=== PATIENT | male | born 1955 | race Caucasian/White ===

== ENCOUNTER 2016-08-03 07:36 | Emergency (ER) | payer BC ==
[~2016-08-03] VITALS: Ht 180.3 cm; Wt 72.2 kg
[2016-08-03] MEDS ORDERED: ATOR40TA75 (08:16)
[2016-08-03] MEDS ORDERED: ASPI1TAB15 (08:16)
[2016-08-03] MEDS ORDERED: LISI10TA4 (08:17)
[2016-08-03 08:26] LABS: BASO % 0.4 % (0.0-1.0); EOS # 0.4 K/mm3 (0.0-0.50); EOS % 4.4 % (0.0-3.0); LARGE UNSTAINED CELL # 0.1 K/mm3 (0.0-0.4); LARGE UNSTAINED CELL % 1.5 % (0.0-4.0); LYMPH # 1.4 K/mm3 (1.5-4.5); MEAN CORPUSCULAR HEMOGLOBIN 31.9 pg (27.0-33.0); MEAN CORPUSCULAR HGB CONC 33.7 g/dl (32.0-36.5); MEAN CORPUSCULAR VOLUME 94.6 fl (80.0-96.0); MONO # 0.5 K/mm3 (0.0-0.8); MONO % 5.7 % (0.0-5.0); NEUTROPHILS # 6.2 K/mm3 (1.8-7.7); NEUTROPHILS % 73.1 % (36.0-66.0); PLATELET COUNT, AUTOMATED 225 k/mm3 (150-450); WHITE BLOOD COUNT 8.5 K/mm3 (4.0-10.0)
--- NOTE | 2016-08-03 08:33 | REP ---
Clinical: Chest pain . Comparison: 03/11/2014 . Findings: The mediastinum and cardiac silhouette are stable and within normal limits for portable technique. The lung bateman are clear without acute consolidation, effusion, or pneumothorax. Skeletal structures are intact. Impression: Normal portable chest x-ray Signed by Harshil Morton MD 08/03/2016 08:24 A
[2016-08-03 08:41] LABS: ALBUMIN 4.4 GM/DL (3.2-5.2); ALBUMIN/GLOBULIN RATIO 1.29 (1.00-1.93); ALKALINE PHOSPHATASE 121 U/L (45-117); ALT/SGPT 32 U/L (12-78); ANION GAP 7 MEQ/L (8-16); AST/SGOT 20 U/L (15-37); BILIRUBIN,DIRECT 0.2 MG/DL (0.0-0.2); BILIRUBIN,TOTAL 0.9 MG/DL (0.2-1.0); BLOOD UREA NITROGEN 14 MG/DL (7-18); CARBON DIOXIDE LEVEL 29 MEQ/L (21-32); CHLORIDE LEVEL 101 MEQ/L (98-107); CREATININE FOR GFR 1.32 MG/DL (0.70-1.30); GLOMERULAR FILTRATION RATE 59.1 (>56); GLUCOSE, FASTING 150 MG/DL (70-105); POTASSIUM SERUM 4.1 MEQ/L (3.5-5.1); SODIUM LEVEL 137 MEQ/L (136-145); TOTAL PROTEIN 7.8 GM/DL (6.4-8.2)
[2016-08-03 08:48] LABS: MAGNESIUM LEVEL 2.4 MG/DL (1.8-2.4)
[2016-08-03 16:19] VITALS: BP 117/73
--- NOTE | 2016-08-04 07:28 | ECGEPIP ---
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
--- NOTE | 2016-08-04 07:34 | ECGEPIP ---
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
== END 2016-08-03 16:20 | disposition home or self-care (01) ==
LOC: M ED 08:13
DX: R00.2 Palpitations (principal); I10 Essential (primary) hypertension; E78.5 Hyperlipidemia, unspecified; Z87.891 Personal history of nicotine dependence; Z79.82 Long term (current) use of aspirin; Z79.899 Other long term (current) drug therapy

== ENCOUNTER → 2017-11-23 | Outpatient (REF) | payer OTHER ==
[2017-11-23 12:21] LABS: BASO # 0.1 10^3/uL (0.0-0.2); BASO % 0.6 % (0.0-1.0); EOS # 0.3 10^3/uL (0.0-0.50); EOS % 3.1 % (0.0-3.0); HEMATOCRIT 49.4 % (42.0-52.0); HEMOGLOBIN 15.9 g/dl (13.5-17.5); IMMATURE GRANULOCYTE % 0.5 % (0-3.0); LYMPH # 1.9 10^3/uL (1.5-4.5); LYMPH % 19.9 % (24.0-44.0); MEAN CORPUSCULAR HEMOGLOBIN 30.6 pg (27.0-33.0); MEAN CORPUSCULAR HGB CONC 32.2 g/dl (32.0-36.5); MONO # 0.8 10^3/uL (0.0-0.8); NEUTROPHILS # 6.6 10^3/uL (1.8-7.7); NEUTROPHILS % 67.9 % (36.0-66.0); PLATELET COUNT, AUTOMATED 261 10^3/uL (150-450); RED CELL DISTRIBUTION WIDTH 12.1 % (11.5-14.5); WHITE BLOOD COUNT 9.7 10^3/uL (4.0-10.0)
[2017-11-23 13:11] LABS: ALBUMIN 4.4 GM/DL (3.2-5.2); ALBUMIN/GLOBULIN RATIO 1.47 (1.00-1.93); ALKALINE PHOSPHATASE 119 U/L (45-117); ALT/SGPT 45 U/L (12-78); ANION GAP 7 MEQ/L (8-16); AST/SGOT 23 U/L (7-37); BILIRUBIN,TOTAL 0.6 MG/DL (0.2-1.0); BLOOD UREA NITROGEN 13 MG/DL (7-18); CALCIUM LEVEL 8.9 MG/DL (8.8-10.2); CARBON DIOXIDE LEVEL 31 MEQ/L (21-32); CHLORIDE LEVEL 100 MEQ/L (98-107); CHOLESTEROL LEVEL 157 MG/DL (<200); CHOLESTEROL RISK RATIO 2.907 (<5); CREATININE FOR GFR 1.15 MG/DL (0.70-1.30); FREE THYROXINE INDEX 3.1 % (1.4-3.8); GLOMERULAR FILTRATION RATE > 60.0 (>49); GLUCOSE, FASTING 115 MG/DL (70-100); HDL CHOLESTEROL 54 MG/DL (>40); LDL CHOLESTEROL 86 MG/DL (<100); NON-HDL-C 103 MG/DL; POTASSIUM SERUM 4.8 MEQ/L (3.5-5.1); PSA SCREENING 2.88 NG/ML (< 4.0); SODIUM LEVEL 138 MEQ/L (136-145); T UPTAKE 30 % (33-40); THYROXINE (T4) 10.4 UG/DL (4.5-12.0); TOTAL PROTEIN 7.4 GM/DL (6.4-8.2); TRIGLYCERIDES LEVEL 85 MG/DL (<150)
== END ==
LOC: M SFHCPLAZ 10:19
DX: Z00.00 Encounter for general adult medical examination without abnormal findings (principal); R22.1 Localized swelling, mass and lump, neck; Z12.5 Encounter for screening for malignant neoplasm of prostate
CPT/HCPCS: 84443

== ENCOUNTER → 2017-12-02 | Outpatient (CLI) | payer OTHER ==
[~2017-12-02] MED LIST: ISOVUE-370 76% 100ML VIAL (Q9967) As Ordered
== END ==
LOC: M RAD 15:28
DX: R22.1 Localized swelling, mass and lump, neck (principal)
CPT/HCPCS: Q9967

== ENCOUNTER → 2017-12-09 | Outpatient (CLI) | payer SELFPAY, OTHER | LOC: M RAD 16:08 | DX: Z12.2 Encounter for screening for malignant neoplasm of respiratory organs (principal); Z87.891 Personal history of nicotine dependence; R91.8 Other nonspecific abnormal finding of lung field ==

== ENCOUNTER 2018-01-04 06:53 | Day surgery (SDC) | payer OTHER ==
[2018-01-04] MEDS ORDERED: SIMETHICONE 40MG/0.6ML DROPS 30ML As Ordered (07:02)
[2018-01-04] MEDS: NS 1,000 ML IV (07:10)
[2018-01-04] MEDS ORDERED: LIDOCAINE 2% INJ 100 MG/5 ML SDV (FOR ANES.) As Ordered (07:36)
[2018-01-04] MEDS ORDERED: PROPOFOL 500 MG/50 ML VIAL As Ordered (07:36)
== END 2018-01-04 08:24 | disposition home or self-care (01) ==
LOC: M OPP 06:53
DX: Z12.11 Encounter for screening for malignant neoplasm of colon (principal); K57.30 Diverticulosis of large intestine without perforation or abscess without bleeding; J44.9 Chronic obstructive pulmonary disease, unspecified; I10 Essential (primary) hypertension; I25.2 Old myocardial infarction; R06.83 Snoring; Z79.82 Long term (current) use of aspirin; Z79.899 Other long term (current) drug therapy; Z95.5 Presence of coronary angioplasty implant and graft; Z87.891 Personal history of nicotine dependence; Z90.49 Acquired absence of other specified parts of digestive tract; Z98.890 Other specified postprocedural states
CPT/HCPCS: 45378

== ENCOUNTER → 2018-01-04 | Outpatient (CLI) | payer OTHER ==
[2018-01-04 11:04] LABS: GLUCOSE,RANDOM 128 MG/DL (LESS THAN 200)
== END ==
LOC: M LAB 09:01
DX: Z13.1 Encounter for screening for diabetes mellitus (principal)
CPT/HCPCS: 82947

== ENCOUNTER → 2018-12-08 | Outpatient (CLI) | payer OTHER ==
[~2018-12-08] MED LIST changes: +ASPI1TAB15 PO; +ATOR40TA75 PO; -ISOVUE-370 76% 100ML VIAL (Q9967) As Ordered; +LISI10TA4 PO; +PANT20TA2 PO
--- NOTE | 2018-12-08 15:50 | REP ---
Clinical: Chronic obstructive pulmonary disease with acute cough . Comparison: 08/03/2016 . Technique: PA and lateral. Findings: The mediastinum and cardiac silhouette are normal. The lung bateman demonstrate chronic changes consistent with COPD without acute consolidation, effusion, or pneumothorax. The skeletal structures are intact and normal. Impression: 1. COPD. No acute cardiopulmonary process. Electronically Signed by Harshil Morton MD 12/08/2018 03:00 P
== END ==
LOC: M WUC 14:36
PROVIDERS: ATTEND Physician Assistant
DX: J44.9 Chronic obstructive pulmonary disease, unspecified (principal)

== ENCOUNTER 2019-03-09 10:53 | Emergency (ER) | payer OTHER ==
[~2019-03-09] VITALS: Ht 180.3 cm; Wt 83.0 kg
[2019-03-09] MEDS ORDERED: AMOXTAB (11:25)
[2019-03-09] MEDS ORDERED: ALLE1TAB23 (11:25)
[2019-03-09] MEDS ORDERED: NAPR-885 (11:25)
[2019-03-09 11:44] LABS: BASO % 0.5 % (0.0-1.0); EOS # 0.9 10^3/uL (0.0-0.5); EOS % 9.9 % (0.0-3.0); HEMATOCRIT 43.4 % (42.0-52.0); LYMPH # 1.6 10^3/uL (1.5-5.0); LYMPH % 18.1 % (24.0-44.0); MEAN CORPUSCULAR HEMOGLOBIN 30.4 pg (27.0-33.0); MEAN CORPUSCULAR HGB CONC 32.3 g/dl (32.0-36.5); MEAN CORPUSCULAR VOLUME 94.3 fl (80.0-96.0); MONO # 0.6 10^3/uL (0.0-0.8); NEUTROPHILS # 5.6 10^3/uL (1.5-8.5); PLATELET COUNT, AUTOMATED 207 10^3/uL (150-450); WHITE BLOOD COUNT 8.8 10^3/uL (4.0-10.0)
[2019-03-09 11:55] LABS: INR 1.01
[2019-03-09 12:15] LABS: BLOOD UREA NITROGEN 19 MG/DL (7-18); CALCIUM LEVEL 8.9 MG/DL (8.8-10.2); CARBON DIOXIDE LEVEL 27 MEQ/L (21-32); CHLORIDE LEVEL 107 MEQ/L (98-107); CPK CREATINE PHOSPHOKINASE 128 U/L (39-308); CREATININE FOR GFR 1.09 MG/DL (0.70-1.30); GLOMERULAR FILTRATION RATE > 60.0 (>49); GLUCOSE, FASTING 113 MG/DL (70-100); MB/CK RELATIVE INDEX 0.78 (< OR =4); NT-PRO BNP 70 PG/ML (<125); POTASSIUM SERUM 4.5 MEQ/L (3.5-5.1); SODIUM LEVEL 141 MEQ/L (136-145); TROPONIN I < 0.02 NG/ML (< 0.10)
--- NOTE | 2019-03-09 13:32 | ECGEPIP ---
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
--- NOTE | 2019-03-09 13:37 | REP ---
CHEST, TWO VIEWS: Two views of the chest are performed and compared to a prior study of 12/08/2018. There is mild scattered fibrotic change with mild biapical pleural thickening, stable. There is no acute infiltrate. The heart is normal in size and the mediastinal silhouette is unremarkable and unchanged. IMPRESSION: No acute infiltrate. Electronically Signed by Glenn Ohara MD 03/09/2019 03:26 P
[2019-03-09] MEDS ORDERED: dexameTHASONE 20 MG/5 ML VIAL (J1100) IV ONE (13:45)
[2019-03-09] MEDS ORDERED: ALBUTEROL SULFATE 2.5 MG/0.5 ML INH NEB SOLN INH ONE (13:45)
[2019-03-09] MEDS ORDERED: IPRATROPIUM 0.5MG/ALBUTEROL 2.5MG INH SOL UD 3ML (DUONEB)(J7620) NEB ONE (13:45)
[2019-03-09] MEDS ORDERED: ISOVUE-370 76% 100ML VIAL (Q9967) As Ordered ONE (13:47)
--- NOTE | 2019-03-09 14:17 | REP ---
CT of the chest with IV contrast, CT pulmonary angiography: Comparison is the chest CT in 12/09/2017. There are no emboli in the pulmonary trunk or central pulmonary arteries. There are no emboli in the pulmonary lobe or segment branches. There are no infiltrates. No pleural effusions. There are no lung masses or nodules. There is no mediastinal, hilar or axillary adenopathy. The thoracic aorta is unremarkable. Cardiac size is normal. There is no pericardial effusion. The visualized upper abdominal contents are unremarkable except for a tiny gallbladder calculi. Impression: There are no pulmonary emboli. There are no infiltrates, effusions, masses or nodules. There is no adenopathy. There are tiny gallbladder calculi. Electronically Signed by Glenn Douglas MD 03/09/2019 02:09 P
[2019-03-09] MEDS ORDERED: PRED20TA PO (16:14)
[2019-03-09 16:15] VITALS: BP 130/81
== END 2019-03-09 16:42 | disposition home or self-care (01) ==
LOC: M ED 10:53
DX: J44.9 Chronic obstructive pulmonary disease, unspecified (principal); R00.1 Bradycardia, unspecified; I45.89 Other specified conduction disorders; Z95.5 Presence of coronary angioplasty implant and graft; F17.200 Nicotine dependence, unspecified, uncomplicated; Z79.82 Long term (current) use of aspirin; Z79.899 Other long term (current) drug therapy
CPT/HCPCS: 71046; 71275; 80048; 82550; 82553; 83880; 84484; 85025; 85610; 93005; 93041; 94640; 94760; 96374; 99285; J1100; Q9967

== ENCOUNTER 2019-03-22 08:05 | Emergency (ER) | payer OTHER ==
[~2019-03-22] VITALS: Ht 180.3 cm; Wt 78.6 kg
[~2019-03-22 08:05] MED LIST changes: +ALLE1TAB23; +AMOXTAB; +NAPR-885; +PRED20TA PO
[2019-03-22] MEDS ORDERED: ATOR80TA59 (08:17)
[2019-03-22] MEDS ORDERED: IPRATROPIUM 0.5MG/ALBUTEROL 2.5MG INH SOL UD 3ML (DUONEB)(J7620) NEB ONE (08:30)
--- NOTE | 2019-03-22 09:14 | REP ---
Clinical: Cough . Comparison: 03/09/2019 . Technique: PA and lateral. Findings: The mediastinum and cardiac silhouette are normal. The lung bateman are clear and without acute consolidation, effusion, or pneumothorax. The skeletal structures are intact and normal. Impression: 1. No acute cardiopulmonary process. Electronically Signed by Harshil Morton MD 03/22/2019 09:06 A
[2019-03-22 09:19] LABS: INFLUENZA A AMPLIFICATION NEGATIVE (NEGATIVE); INFLUENZA B AMPLIFICATION NEGATIVE (NEGATIVE)
[2019-03-22] MEDS ORDERED: PRED10TA2 PO (09:42)
[2019-03-22 10:00] VITALS: BP 117/68
== END 2019-03-22 10:11 | disposition home or self-care (01) ==
LOC: M ED 08:05
DX: J20.5 Acute bronchitis due to respiratory syncytial virus (principal); I25.10 Atherosclerotic heart disease of native coronary artery without angina pectoris; I10 Essential (primary) hypertension; J44.9 Chronic obstructive pulmonary disease, unspecified; K21.9 Gastro-esophageal reflux disease without esophagitis; K57.30 Diverticulosis of large intestine without perforation or abscess without bleeding; Z79.82 Long term (current) use of aspirin; Z79.899 Other long term (current) drug therapy

== ENCOUNTER 2019-04-08 07:42 | Emergency (ER) | payer OTHER ==
[~2019-04-08] VITALS: Ht 180.3 cm; Wt 78.2 kg
[~2019-04-08 07:42] MED LIST changes: +ATOR80TA59; +PRED10TA2 PO
[2019-04-08] MEDS ORDERED: IBUP80TA PO (09:02)
[2019-04-08] MEDS ORDERED: AMOX500C PO (09:02)
[2019-04-08 09:27] VITALS: BP 145/85
== END 2019-04-08 09:28 | disposition home or self-care (01) ==
LOC: M ED 07:42
DX: K04.7 Periapical abscess without sinus (principal); K02.9 Dental caries, unspecified; G50.1 Atypical facial pain; R50.9 Fever, unspecified; I25.10 Atherosclerotic heart disease of native coronary artery without angina pectoris; I25.2 Old myocardial infarction; I10 Essential (primary) hypertension; J44.9 Chronic obstructive pulmonary disease, unspecified; Z79.82 Long term (current) use of aspirin; Z79.899 Other long term (current) drug therapy

== ENCOUNTER → 2019-07-27 | Outpatient (CLI) | payer OTHER ==
[~2019-07-27] MED LIST changes: +AMOX500C PO; +IBUP80TA PO
[2019-07-27 14:19] LABS: BASO % 0.5 % (0.0-1.0); EOS # 0.4 10^3/uL (0.0-0.5); EOS % 5.3 % (0.0-3.0); HEMATOCRIT 44.5 % (42.0-52.0); HEMOGLOBIN 14.4 g/dl (13.5-17.5); LYMPH % 24.9 % (24.0-44.0); MEAN CORPUSCULAR HEMOGLOBIN 30.3 pg (27.0-33.0); MEAN CORPUSCULAR HGB CONC 32.4 g/dl (32.0-36.5); MEAN CORPUSCULAR VOLUME 93.5 fl (80.0-96.0); MONO # 0.7 10^3/uL (0.0-0.8); MONO % 8.5 % (0.0-5.0); NEUTROPHILS # 4.8 10^3/uL (1.5-8.5); NEUTROPHILS % 60.4 % (36.0-66.0); PLATELET COUNT, AUTOMATED 251 10^3/uL (150-450); RED BLOOD COUNT 4.76 10^6/uL (4.30-6.10); WHITE BLOOD COUNT 7.9 10^3/uL (4.0-10.0)
[2019-07-27 15:00] LABS: ALT/SGPT 34 U/L (12-78); BILIRUBIN,TOTAL 0.8 MG/DL (0.2-1.0); BLOOD UREA NITROGEN 14 MG/DL (7-18); CALCIUM LEVEL 9.1 MG/DL (8.8-10.2); CARBON DIOXIDE LEVEL 30 MEQ/L (21-32); CHLORIDE LEVEL 104 MEQ/L (98-107); CHOLESTEROL LEVEL 113 MG/DL (<200); CHOLESTEROL RISK RATIO 2.825 (<5); CREATININE FOR GFR 1.08 MG/DL (0.70-1.30); GLOMERULAR FILTRATION RATE > 60.0 (>49); GLUCOSE, FASTING 102 MG/DL (70-100); HDL CHOLESTEROL 40 MG/DL (>40); LDL CHOLESTEROL 61 MG/DL (<100); NON-HDL-C 73 MG/DL; POTASSIUM SERUM 4.4 MEQ/L (3.5-5.1); SODIUM LEVEL 137 MEQ/L (136-145); TOTAL PROTEIN 6.9 GM/DL (6.4-8.2); TRIGLYCERIDES LEVEL 59 MG/DL (<150)
[2019-07-27 19:05] LABS: HIV 1&2 SCREEN CENTAUR NEGATIVE (NEGATIVE)
== END ==
LOC: M LAB 13:18
PROVIDERS: ATTEND Family Medicine
DX: Z13.220 Encounter for screening for lipoid disorders (principal); J06.9 Acute upper respiratory infection, unspecified; Z12.5 Encounter for screening for malignant neoplasm of prostate
CPT/HCPCS: 36415; 80053; 80061; 84443; 85025; 87389; G0103

== ENCOUNTER → 2020-03-13 | Outpatient (CLI) | payer OTHER ==
[~2020-03-13] MED LIST changes: +ASPI-546 PO; -ASPI1TAB15 PO; -PANT20TA2 PO; +PANT20TA6 PO
[2020-03-13 14:11] LABS: HEMOGLOBIN A1c 7.6 %
== END ==
LOC: M LAB 11:37
PROVIDERS: ATTEND Ophthalmology
DX: H47.022 Hemorrhage in optic nerve sheath, left eye (principal)

== ENCOUNTER → 2020-04-01 | Outpatient (REF) | payer OTHER ==
[~2020-04-01] MED LIST changes: +LISI10TA22 PO; -LISI10TA4 PO
== END ==
LOC: M SFHCPLAZ 15:53
PROVIDERS: ATTEND Family Medicine
DX: R73.09 Other abnormal glucose (principal); Z13.220 Encounter for screening for lipoid disorders; Z12.5 Encounter for screening for malignant neoplasm of prostate

== ENCOUNTER → 2020-04-14 | Outpatient (CLI) | payer OTHER ==
[2020-04-14 07:55] LABS: CHOLESTEROL RISK RATIO 2.977 (<5)
--- NOTE | 2020-04-14 08:46 | REP ---
INDICATION: SCREENING FOR LUNG CANCER LABS 1ST CT 2ND COMPARISON: 03/09/2019 TECHNIQUE: Axial noncontrast images from the thoracic inlet to the upper abdomen using low-dose lung screening technique (LDCT). FINDINGS: Biapical scarring extending along the bilateral posterior subpleural upper lung zones remains essentially stable. No new acute consolidation, suspicious nodule or mass lesion appreciated. Mild emphysematous changes including mild elements of bronchiectasis are suggested. No effusion. No pneumothorax. IMPRESSION: Lung-RADS category 2 with stable chronic changes as compared to prior examination. No suspicious nodule or mass lesion identified. Management recommendations include annual low-dose CT evaluation. <Electronically signed by Harshil Morton > 04/14/20 0805
[2020-04-14 09:39] LABS: HEMOGLOBIN A1c 8.2 %
== END ==
LOC: M LAB 06:48
PROVIDERS: ATTEND Family Medicine
DX: Z12.2 Encounter for screening for malignant neoplasm of respiratory organs (principal); Z87.891 Personal history of nicotine dependence; R73.09 Other abnormal glucose; Z13.220 Encounter for screening for lipoid disorders; Z12.5 Encounter for screening for malignant neoplasm of prostate
CPT/HCPCS: 36415; 71271; 80061; 82947; 83036; G0103

== ENCOUNTER → 2020-04-24 | Outpatient (CLI) | payer OTHER ==
[2020-04-24 11:35] LABS: BASO # 0.1 10^3/uL (0.0-0.2); BASO % 0.6 % (0.0-1.0); EOS # 0.7 10^3/uL (0.0-0.5); EOS % 7.7 % (0.0-3.0); HEMOGLOBIN 14.8 g/dl (13.5-17.5); LYMPH # 2.1 10^3/uL (1.5-5.0); LYMPH % 21.6 % (24.0-44.0); MEAN CORPUSCULAR HEMOGLOBIN 30.9 pg (27.0-33.0); MEAN CORPUSCULAR HGB CONC 32.9 g/dl (32.0-36.5); MEAN CORPUSCULAR VOLUME 93.9 fl (80.0-96.0); MONO # 0.7 10^3/uL (0.0-0.8); MONO % 7.7 % (2.0-8.0); NEUTROPHILS # 5.9 10^3/uL (1.5-8.5); PLATELET COUNT, AUTOMATED 226 10^3/uL (150-450); RED BLOOD COUNT 4.79 10^6/uL (4.30-6.10); WHITE BLOOD COUNT 9.5 10^3/uL (4.0-10.0)
[2020-04-24 12:06] LABS: BLOOD UREA NITROGEN 20 MG/DL (7-18); CALCIUM LEVEL 9.4 MG/DL (8.8-10.2); CARBON DIOXIDE LEVEL 33 MEQ/L (21-32); CHLORIDE LEVEL 104 MEQ/L (98-107); CREATININE FOR GFR 0.99 MG/DL (0.70-1.30); GLOMERULAR FILTRATION RATE > 60.0 (>49); GLUCOSE, FASTING 164 MG/DL (70-100); POTASSIUM SERUM 4.7 MEQ/L (3.5-5.1); SODIUM LEVEL 138 MEQ/L (136-145)
== END ==
LOC: M LAB 10:52
PROVIDERS: ATTEND Internal Medicine Cardiovascular Disease
DX: I21.4 Non-ST elevation (NSTEMI) myocardial infarction (principal); I10 Essential (primary) hypertension; R94.31 Abnormal electrocardiogram [ECG] [EKG]

== ENCOUNTER → 2020-06-03 | Outpatient (REF) | payer OTHER ==
[2020-06-03 13:50] LABS: MALB URINE SIEMENS 15.1 MG/L; MAU/CREAT RATIO 7.6 MCG/MG (0.0-30.0)
[2020-06-06 08:10] LABS: ISLET CELL ANTIBODIES Negative (Neg:<1:1)
== END ==
LOC: M SFHCPLAZ 09:16
PROVIDERS: ATTEND Family Medicine
DX: E11.65 Type 2 diabetes mellitus with hyperglycemia (principal)

== ENCOUNTER → 2020-07-02 | Outpatient (REF) | payer OTHER | LOC: M SFHCPLAZ 11:50 | PROVIDERS: ATTEND Family Medicine | DX: E11.65 Type 2 diabetes mellitus with hyperglycemia (principal); Z53.9 Procedure and treatment not carried out, unspecified reason ==

== ENCOUNTER → 2020-07-16 | Outpatient (CLI) | payer OTHER ==
[2020-07-16 19:37] LABS: HEMOGLOBIN A1c 6.6 %
== END ==
LOC: M LAB 10:33
PROVIDERS: ATTEND Family Medicine
DX: E11.65 Type 2 diabetes mellitus with hyperglycemia (principal)

== ENCOUNTER → 2020-08-12 | Outpatient (CLI) | payer OTHER ==
[~2020-08-12] MED LIST changes: +ISOVUE-370 76% 100ML VIAL As Ordered ONE
--- NOTE | 2020-08-12 08:30 | REP ---
INDICATION: NASAL POLYP, SWELLING/MASS/LUMP IN NECK. COMPARISON: Comparison study December 02, 2017.. TECHNIQUE: Helical scanning is acquired and 2 mm axial images re-formatted. Coronal MPR images are generated and reviewed. 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 Frontal sinuses show moderate mucosal thickening inferiorly on the left greater than the right. The frontal sinuses are otherwise clear. The maxillary sinuses are clear bilaterally. There is moderate mucosal thickening and extensive opacification in the ethmoid air cells bilaterally. There is mucosal thickening and mucoid material in the sphenoid sinuses bilaterally. Mastoid aeration is normal and symmetric. The bony nasal septum deviates to the left with a septal beak. The ostiomeatal complex is obscured on the left by mucosal thickening in the superomedial aspect of the maxillary sinus. There is mucosal thickening on the right but ostiomeatal complex area appears to be patent. The right middle turbinates this small particularly anteriorly. The left middle turbinates appears small posteriorly. There is mucosal thickening and crowding in the region of the nasal ethmoid recesses bilaterally and small polyps are suspected here particularly on the left. No bony destructive lesion is seen. Deep facial and intraorbital soft tissues are unremarkable. The visualized intracranial structures are intact. IMPRESSION: Moderate mucosal changes in the ethmoid and to a lesser extent frontal sphenoid and maxillary sinuses. Asymmetry of the middle turbinates. Nasal septal deviation to the left. Possible small polyps in the region of the nasal ethmoid recesses. <Electronically signed by Barrie Fitzpatrick > 08/12/20 [id number]
--- NOTE | 2020-08-12 08:38 | REPVR ---
PROCEDURE INFORMATION: Exam: CT Neck With Contrast Exam date and time: 08/12/2020 7:51 AM Age: 65 years old Clinical indication: Mass, lump, or swelling in neck; Bilateral; Additional info: Nasal polyp, swelling/mass/lump in neck TECHNIQUE: Imaging protocol: Computed tomography images of the neck with contrast. Radiation optimization: All CT scans at this facility use at least one of these dose optimization techniques: automated exposure control; mA and/or kV adjustment per patient size (includes targeted exams where dose is matched to clinical indication); or iterative reconstruction. Contrast material: ISOVUE 370; Contrast volume: 75 ml; Contrast route: INTRAVENOUS (IV); COMPARISON: CT Neck with contrast 12/02/2017 3:44 PM FINDINGS: Paranasal sinuses: Fluid and mucosal thickening in the bilateral frontal sinuses, sphenoid sinuses, and ethmoid air cells. Nasopharynx: Unremarkable. Dental: Poor dentition. No clear evidence of a periodontal abscess. Oropharynx: Unremarkable. No significant tonsillar enlargement. Hypopharynx: Unremarkable. Larynx: Unremarkable. Normal epiglottis. Retropharyngeal space: Unremarkable. Submandibular/Parotid glands: Normal. Glands are normal in size. Thyroid: Normal. No enlarged or calcified nodules. Lymph nodes: Unremarkable. No lymphadenopathy. Trachea: Visualized trachea is unremarkable. Lungs: Biapical scarring and mild traction bronchiectasis. Bones/joints: Unremarkable. No acute fracture. Vasculature: Mild atherosclerotic disease. Soft tissues: Unremarkable. No significant soft tissue swelling. IMPRESSION: Paranasal sinus disease. Electronically signed by: Miky Gloria On 08/12/2020 08:37:47 AM
== END ==
LOC: M RAD 07:20
PROVIDERS: ATTEND Otolaryngology
DX: J33.9 Nasal polyp, unspecified (principal); R22.1 Localized swelling, mass and lump, neck; J34.2 Deviated nasal septum; J32.2 Chronic ethmoidal sinusitis; J32.3 Chronic sphenoidal sinusitis; J32.1 Chronic frontal sinusitis

== ENCOUNTER → 2020-09-23 | Outpatient (REF) | payer OTHER ==
[~2020-09-23] MED LIST changes: -ISOVUE-370 76% 100ML VIAL As Ordered ONE
== END ==
LOC: M SFHCPLAZ 14:25
PROVIDERS: ATTEND Family Medicine
DX: E11.65 Type 2 diabetes mellitus with hyperglycemia (principal)

== ENCOUNTER → 2020-12-01 | Outpatient (CLI) | payer OTHER ==
[~2020-12-01] MED LIST changes: -ATOR80TA59; +ATOR80TA59 PO; +FLON1SPR; +METF-838 PO; +ZYRTTAB8 PO
== END ==
LOC: M LABSMTC 10:20
PROVIDERS: ATTEND Anesthesiology
DX: Z01.812 Encounter for preprocedural laboratory examination (principal); Z20.822 Contact with and (suspected) exposure to COVID-19

== ENCOUNTER 2020-12-05 06:43 | Day surgery (SDC) | payer OTHER ==
[~2020-12-05] VITALS: Ht 180.3 cm; Wt 75.7 kg
[~2020-12-05 06:43] MED LIST changes: +LIDOCAINE 2% 100MG/5ML SDV (FOR ANES.) As Ordered ONE; +NS 1,000 ML IV ONE; +fentaNYL 100 MCG/2 ML INJECTION (J3010) As Ordered ONE; +propofoL 200 MG/20 ML VIAL As Ordered ONE
--- NOTE | 2020-12-05 08:12 | ROOR ---
Patient Name: Tiago Clement Procedure Date: 12/05/2020 7:35 AM Date of : 1955 Age: 65 Room: [facility] Gender: Male Note Status: Finalized Procedure: Upper GI endoscopy Indications: Dysphagia, Heartburn Providers: Kuldip Bruno MD Referring MD: Efrain Clemente Do Requesting Provider: Medicines: Monitored Anesthesia Care Complications: No immediate complications. Procedure: Pre-Anesthesia Assessment: - Prior to the procedure, a History and Physical was performed, and patient medications and allergies were reviewed. The patient is competent. The risks and benefits of the procedure and the sedation options and risks were discussed with the patient. All questions were answered and informed consent was obtained. Patient identification and proposed procedure were verified by the physician, the nurse and the anesthesiologist in the procedure room. Mental Status Examination: alert and oriented. Airway Examination: normal oropharyngeal airway and neck mobility. Respiratory Examination: clear to auscultation. CV Examination: normal. Prophylactic Antibiotics: The patient does not require prophylactic antibiotics. Prior Anticoagulants: The patient has taken no previous anticoagulant or antiplatelet agents. ASA Grade Assessment: II - A patient with mild systemic disease. After reviewing the risks and benefits, the patient was deemed in satisfactory condition to undergo the procedure. The anesthesia plan was to use monitored anesthesia care (MAC). Immediately prior to administration of medications, the patient was re-assessed for adequacy to receive sedatives. The heart rate, respiratory rate, oxygen saturations, blood pressure, adequacy of pulmonary ventilation, and response to care were monitored throughout the procedure. The physical status of the patient was re-assessed after the procedure. The Endoscope was introduced through the mouth, and advanced to the second part of duodenum. The upper GI endoscopy was accomplished without difficulty. The patient tolerated the procedure well. Findings: LA Grade A (one or more mucosal breaks less than 5 mm, not extending between tops of 2 mucosal folds) esophagitis with no bleeding was found in the distal esophagus. Biopsies were taken with a cold forceps for histology. Verification of patient identification for the specimen was done by the physician and nurse using the patient's name, date and medical record number. Estimated blood loss was minimal. The Z-line was irregular and was found 41 cm from the incisors. Scattered mild inflammation characterized by erythema, friability and granularity was found in the gastric antrum. Biopsies were taken with a cold forceps for Helicobacter pylori testing. The duodenal bulb, second portion of the duodenum and area of the papilla were normal. The ROMERO capsule with delivery system was introduced through the mouth and advanced into the esophagus, such that the ROMERO pH capsule was positioned 35 cm from the incisors, which was 6 cm proximal to the GE junction. Suction was applied to the well of the ROEMRO pH capsule to suck in the adjacent mucosa of the esophagus using the external vacuum pump set at a minimum vacuum pressure of 550 mmHg for 30 seconds. The ROMERO pH capsule was then deployed by depressing the plunger on top of the handle to advance the locking pin into the mucosa, thereby attaching the capsule to the esophagus. The plunger was then rotated a quarter turn clockwise to release the capsule from the delivery system. The delivery system was then withdrawn. Endoscopy was utilized for probe placement and diagnostic evaluation. The scope was reinserted to evaluate placement of the ROMERO capsule. Visualization showed the ROMERO capsule to be in an appropriate position. Impression: - LA Grade A reflux esophagitis. Rule out Ryan's esophagus. Biopsied. - Z-line irregular, 41 cm from the incisors. - Gastritis. Biopsied. - Normal duodenal bulb, second portion of the duodenum and area of the papilla. - The ROMERO pH capsule was positioned 35 cm from the incisors, which was 6 cm proximal to the GE junction. Recommendation: - Patient has a contact number available for emergencies. The signs and symptoms of potential delayed complications were discussed with the patient. Return to normal activities tomorrow. Written discharge instructions were provided to the patient. - High fiber diet. - Continue present medications. - Follow an antireflux regimen. - Await pathology results. - Telephone GI clinic for pathology results in 2 weeks. - Return to GI clinic if persistent symptoms or new symptoms. - Return to primary care physician. Procedure Code(s): --- Professional --- 43231, Esophagogastroduodenoscopy, flexible, transoral; with biopsy, single or multiple Diagnosis Code(s): --- Professional --- K21.0, Gastro-esophageal reflux disease with esophagitis K22.8, Other specified diseases of esophagus K29.70, Gastritis, unspecified, without bleeding R13.10, Dysphagia, unspecified R12, Heartburn CPT copyright 2019 [employer]. All rights reserved. The codes documented in this report are preliminary and upon balance assembler review may be revised to meet current compliance requirements. Kuldip Bruno MD Kuldip Bruno MD 12/05/2020 8:11:17 AM Electronically signed by Kuldip Bruno MD Number of Addenda: 0 Note Initiated On: 12/05/2020 7:35 AM Estimated Blood Loss: Estimated blood loss was minimal.
[2020-12-05 08:20] VITALS: BP 115/69
== END 2020-12-05 08:27 | disposition home or self-care (01) ==
LOC: M OPP 06:43
PROVIDERS: ATTEND Internal Medicine Gastroenterology
DX: K21.00 Gastro-esophageal reflux disease with esophagitis, without bleeding (principal); K22.89 Other specified disease of esophagus; K29.70 Gastritis, unspecified, without bleeding; R13.10 Dysphagia, unspecified; R12 Heartburn; Z79.82 Long term (current) use of aspirin; Z79.84 Long term (current) use of oral hypoglycemic drugs; Z79.899 Other long term (current) drug therapy; Z95.5 Presence of coronary angioplasty implant and graft; Z87.891 Personal history of nicotine dependence
CPT/HCPCS: 43239; 88305; J3010

== ENCOUNTER → 2020-12-31 | Outpatient (CLI) | payer OTHER ==
[~2020-12-31] MED LIST changes: +AMOX875T PO; -LIDOCAINE 2% 100MG/5ML SDV (FOR ANES.) As Ordered ONE; -NS 1,000 ML IV ONE; -fentaNYL 100 MCG/2 ML INJECTION (J3010) As Ordered ONE; -propofoL 200 MG/20 ML VIAL As Ordered ONE
--- NOTE | 2020-12-31 10:44 | REPVR ---
PROCEDURE INFORMATION: Exam: CT Maxillofacial Without Contrast, Sinus Exam date and time: 12/31/2020 10:12 AM Age: 65 years old Clinical indication: Condition or disease; Other: Nasal polyps TECHNIQUE: Imaging protocol: CT Maxillofacial without contrast. Focus on the sinuses. Radiation optimization: All CT scans at this facility use at least one of these dose optimization techniques: automated exposure control; mA and/or kV adjustment per patient size (includes targeted exams where dose is matched to clinical indication); or iterative reconstruction. COMPARISON: CT BRAIN LAB SINUSES 08/12/2020 7:39 AM FINDINGS: Frontal sinuses: There is left greater than right mucosal disease. There is bilateral fluid. Nasofrontal recesses are opacified bilaterally. Ethmoid air cells: Bilateral anterior greater than posterior air cells moderate mucosal thickening. There are scattered anterior ethmoid air cells air-fluid levels. Sphenoid sinuses: There is mild bilateral mucosal disease. Small right air-fluid level. Spheno-ethmoidal recesses are opacified. Maxillary sinuses: Mild overall bilateral mucosal thickening, which is slightly polypoid superiorly and medially. Small right air-fluid level. Ostiomeatal units are included plate Kristy opacified, left greater than right. Nasal cavity/Septum: Nasal septum is moderately deviated to left. There are polypoid opacities in bilateral superior nasal cavities projecting adjacent to left middle turbinate. Right middle turbinate appears partially resected correlate clinically. Orbital cavity: There have been bilateral intraocular lens replacements likely related to cataract surgery. No evidence of orbital mass or exophthalmos. Bones/joints: Unremarkable. Soft tissues: Unremarkable. Auditory system: Mastoid air cells and middle ear cavities are well developed and well aerated. Dental: There are multiple dental cares present and periodontal lucencies. IMPRESSION: Paranasal sinus disease as described. Nasal polyposis greater on left Electronically signed by: Lisandra Haddad On 12/31/2020 10:44:26 AM
== END ==
LOC: M RAD 09:52
PROVIDERS: ATTEND Otolaryngology
DX: J33.9 Nasal polyp, unspecified (principal); J34.2 Deviated nasal septum; J32.9 Chronic sinusitis, unspecified

== ENCOUNTER → 2021-01-03 | Outpatient (CLI) | payer OTHER | LOC: M LABSMTC 09:18 | PROVIDERS: ATTEND Anesthesiology | DX: Z01.812 Encounter for preprocedural laboratory examination (principal); Z20.822 Contact with and (suspected) exposure to COVID-19 ==

== ENCOUNTER 2021-01-06 08:42 | Day surgery (SDC) | payer OTHER ==
[~2021-01-06] VITALS: Ht 177.8 cm; Wt 75.3 kg
[~2021-01-06 08:42] MED LIST changes: +LR 1,000 ML IV ONE; +dexameTHASONE 4 MG/ML 1ML VIAL (J1100 PER 1MG) IV ONE
[2021-01-06 09:31] LABS: HEMATOCRIT 43.7 % (42.0-52.0); MEAN CORPUSCULAR HEMOGLOBIN 30.4 pg (27.0-33.0); MEAN CORPUSCULAR VOLUME 94.8 fl (80.0-96.0); PLATELET COUNT, AUTOMATED 284 10^3/uL (150-450); RED BLOOD COUNT 4.61 10^6/uL (4.30-6.10)
[2021-01-06 09:49] LABS: BLOOD UREA NITROGEN 13 MG/DL (7-18); CALCIUM LEVEL 8.9 MG/DL (8.8-10.2); CARBON DIOXIDE LEVEL 31 MEQ/L (21-32); CHLORIDE LEVEL 106 MEQ/L (98-107); CREATININE FOR GFR 1.19 MG/DL (0.70-1.30); GLOMERULAR FILTRATION RATE > 60.0 (>49); GLUCOSE, FASTING 135 MG/DL (70-100); POTASSIUM SERUM 4.1 MEQ/L (3.5-5.1); SODIUM LEVEL 141 MEQ/L (136-145)
[2021-01-06] MEDS ORDERED: fentaNYL 100 MCG/2 ML INJECTION As Ordered ONE (10:01)
[2021-01-06] MEDS ORDERED: MIDAZOLAM INJ 2MG/2ML VIAL (J2250 PER 1MG) As Ordered ONE (10:01)
[2021-01-06] MEDS ORDERED: propofoL 200 MG/20 ML VIAL As Ordered ONE (10:02)
[2021-01-06] MEDS ORDERED: dexameTHASONE 4 MG/ML 1ML VIAL (J1100 PER 1MG) As Ordered ONE (10:02)
[2021-01-06] MEDS ORDERED: ONDANSETRON 4MG/2ML VIAL As Ordered ONE (10:02)
[2021-01-06] MEDS ORDERED: LIDOCAINE 2% 100MG/5ML SDV (FOR ANES.) As Ordered ONE (10:02)
[2021-01-06] MEDS ORDERED: ROCURONIUM BROMIDE 50 MG/5 ML VIAL As Ordered ONE (10:02)
[2021-01-06] MEDS ORDERED: LIDOCAINE W/EPINEPHRINE 1% 20ML VIAL As Ordered ONE (10:48)
[2021-01-06] MEDS ORDERED: METHYLENE BLUE 0.5% (5MG/ML) 10 ML AMP (PROVAYBLUE) As Ordered ONE (10:48)
[2021-01-06] MEDS ORDERED: EPINEPHrine 1MG/ML INJ 30ML MD-VIAL As Ordered ONE (10:49)
[2021-01-06] MEDS ORDERED: SODIUM CHLORIDE 0.9% NASAL GEL 15GM (AYR) As Ordered ONE (10:50)
[2021-01-06] MEDS ORDERED: ACETAMINOPHEN 1000MG 100ML IV BTL (OFIRMEV) (J0131 PER 10MG) As Ordered ONE (11:22)
[2021-01-06] MEDS ORDERED: SUGAMMADEX SODIUM 500 MG/5 ML VIAL (BRIDION) As Ordered ONE (11:33)
[2021-01-06] MEDS ORDERED: ePHEDrine SULFATE 25 MG/5 ML(5MG/ML) SYRINGE As Ordered ONE (11:39)
[2021-01-06] MEDS ORDERED: LR 1,000 ML IV SCH (13:00)
[2021-01-06] MEDS ORDERED: METOCLOPRAMIDE INJ 10MG/2ML VIAL (J2765 PER 1) IV PRN (13:00)
[2021-01-06] MEDS ORDERED: ONDANSETRON 4MG/2ML VIAL IV PRN (13:00)
[2021-01-06] MEDS ORDERED: oxyCODONE 5MG TAB PO PRN (13:00)
[2021-01-06] MEDS ORDERED: fentaNYL 100 MCG/2 ML INJECTION IV PRN (13:00)
[2021-01-06 13:40] VITALS: BP 156/90
== END 2021-01-06 13:50 | disposition home or self-care (01) ==
LOC: M SDC 08:42
PROVIDERS: ATTEND Otolaryngology
DX: J34.2 Deviated nasal septum (principal); I10 Essential (primary) hypertension; I25.10 Atherosclerotic heart disease of native coronary artery without angina pectoris; E11.9 Type 2 diabetes mellitus without complications; Z79.82 Long term (current) use of aspirin; Z79.84 Long term (current) use of oral hypoglycemic drugs; Z87.891 Personal history of nicotine dependence; J44.9 Chronic obstructive pulmonary disease, unspecified; Z98.61 Coronary angioplasty status; Z79.899 Other long term (current) drug therapy
CPT/HCPCS: 30520; 36415; 80048; 85027; 88300; 93005; J0131; J1100; J2250; J2405; J3010; Q9968

== ENCOUNTER → 2021-01-20 | Outpatient (REF) | payer OTHER ==
[~2021-01-20] MED LIST changes: -LR 1,000 ML IV ONE; -dexameTHASONE 4 MG/ML 1ML VIAL (J1100 PER 1MG) IV ONE
== END ==
LOC: M SFHCPLAZ 09:22
PROVIDERS: ATTEND Family Medicine
DX: E11.65 Type 2 diabetes mellitus with hyperglycemia (principal)

== ENCOUNTER → 2021-05-26 | Outpatient (CLI) | payer OTHER | LOC: M RAD 07:26 | PROVIDERS: ATTEND Family Medicine | DX: Z12.2 Encounter for screening for malignant neoplasm of respiratory organs (principal); Z87.891 Personal history of nicotine dependence; J43.9 Emphysema, unspecified; J98.4 Other disorders of lung ==

== ENCOUNTER → 2021-08-13 | Outpatient (CLI) | payer OTHER ==
[2021-08-13 10:56] LABS: HEMOGLOBIN A1c 6.4 %
== END ==
LOC: M PLALAB 08:17 → M LAB 08:17
PROVIDERS: ATTEND Family Medicine
DX: E11.65 Type 2 diabetes mellitus with hyperglycemia (principal)

== ENCOUNTER → 2021-09-14 | Outpatient (CLI) | payer OTHER | LOC: M RAD 14:45 | PROVIDERS: ATTEND Internal Medicine Pulmonary Disease | DX: R06.02 Shortness of breath (principal); R91.8 Other nonspecific abnormal finding of lung field ==

== ENCOUNTER → 2021-10-19 | Outpatient (CLI) | payer OTHER | LOC: M PLAIMG 12:59 | PROVIDERS: ATTEND Internal Medicine Pulmonary Disease | DX: R91.1 Solitary pulmonary nodule (principal) ==

== ENCOUNTER → 2022-01-15 | Outpatient (CLI) | payer MEDICARE ==
[2022-01-15 15:40] LABS: BASO # 0.1 10^3/uL (0.0-0.2); BASO % 0.9 % (0.0-1.0); EOS # 1.1 10^3/uL (0.0-0.5); EOS % 12.7 % (0.0-3.0); HEMATOCRIT 44.8 % (42.0-52.0); HEMOGLOBIN 14.4 g/dl (13.5-17.5); LYMPH # 1.9 10^3/uL (1.5-5.0); MEAN CORPUSCULAR HEMOGLOBIN 30.5 pg (27.0-33.0); MEAN CORPUSCULAR HGB CONC 32.1 g/dl (32.0-36.5); MEAN CORPUSCULAR VOLUME 94.9 fl (80.0-96.0); MONO # 0.8 10^3/uL (0.0-0.8); NEUTROPHILS # 4.8 10^3/uL (1.5-8.5); NEUTROPHILS % 55.1 % (36.0-66.0); PLATELET COUNT, AUTOMATED 256 10^3/uL (150-450); RED BLOOD COUNT 4.72 10^6/uL (4.30-6.10); WHITE BLOOD COUNT 8.7 10^3/uL (4.0-10.0)
[2022-01-15 16:09] LABS: CREATININE, URINE 26.4 MG/DL; MALB URINE SIEMENS < 3.0 MG/DL; MAU/CREAT RATIO 11.3 MCG/MG (0.0-30.0)
[2022-01-15 16:11] LABS: HEMOGLOBIN A1c 6.7 % (4.0-6.0)
[2022-01-15 16:16] LABS: ALBUMIN 4.1 G/DL (3.2-5.2); ALKALINE PHOSPHATASE 106 U/L (46-116); ALT/SGPT 25 U/L (7.0-40); AST/SGOT 18 U/L (<34); BILIRUBIN,TOTAL 0.6 MG/DL (0.3-1.2); BLOOD UREA NITROGEN 14 MG/DL (9-23); CALCIUM LEVEL 9.5 MG/DL (8.3-10.6); CARBON DIOXIDE LEVEL 31 MMOL/L (20-31); CHLORIDE LEVEL 101 MMOL/L (98-107); CHOLESTEROL LEVEL 135 MG/DL (<200); CHOLESTEROL RISK RATIO 2.88 (<5); CREATININE FOR GFR 0.94 MG/DL (0.70-1.30); GLOMERULAR FILTRATION RATE > 60.0 (>49); GLUCOSE, FASTING 116 MG/DL (74-106); HDL CHOLESTEROL 46.8 MG/DL (>40); LDL CHOLESTEROL 77.6 MG/DL (<100); NON-HDL-C 88 MG/DL; POTASSIUM SERUM 4.6 MMOL/L (3.5-5.1); SODIUM LEVEL 138 MMOL/L (136-145); TRIGLYCERIDES LEVEL 53 MG/DL (<150)
[2022-01-15 16:17] LABS: THYROID STIMULATING HORMONE 1.673 uIU/ML (0.55-4.78)
== END ==
LOC: M PLALAB 13:00
PROVIDERS: ATTEND Student in an Organized Health Care Education/Training Program
DX: E78.00 Pure hypercholesterolemia, unspecified (principal); Z13.29 Encounter for screening for other suspected endocrine disorder; E11.65 Type 2 diabetes mellitus with hyperglycemia; I10 Essential (primary) hypertension

== ENCOUNTER → 2022-04-28 | Outpatient (CLI) | payer MEDICARE | LOC: M RAD 08:13 | PROVIDERS: ATTEND Internal Medicine Pulmonary Disease | DX: J44.9 Chronic obstructive pulmonary disease, unspecified (principal) ==

== ENCOUNTER → 2022-05-26 | Outpatient (CLI) | payer MEDICARE ==
[2022-05-26 08:32] LABS: BASO # 0.1 10^3/uL (0.0-0.2); BASO % 0.6 % (0.0-1.0); EOS # 0.7 10^3/uL (0.0-0.5); EOS % 8.2 % (0.0-3.0); HEMATOCRIT 42.6 % (42.0-52.0); HEMOGLOBIN 13.8 g/dl (13.5-17.5); LYMPH # 1.8 10^3/uL (1.5-5.0); LYMPH % 21.4 % (24.0-44.0); MEAN CORPUSCULAR HGB CONC 32.4 g/dl (32.0-36.5); MEAN CORPUSCULAR VOLUME 95.7 fl (80.0-96.0); MONO # 0.7 10^3/uL (0.0-0.8); MONO % 8.9 % (2.0-8.0); NEUTROPHILS % 60.5 % (36.0-66.0); PLATELET COUNT, AUTOMATED 237 10^3/uL (150-450); RED BLOOD COUNT 4.45 10^6/uL (4.30-6.10); WHITE BLOOD COUNT 8.2 10^3/uL (4.0-10.0)
[2022-05-26 08:56] LABS: BLOOD UREA NITROGEN 17 MG/DL (9-23); CALCIUM LEVEL 8.9 MG/DL (8.3-10.6); CARBON DIOXIDE LEVEL 29 MMOL/L (20-31); CHLORIDE LEVEL 106 MMOL/L (98-107); CREATININE FOR GFR 1.06 MG/DL (0.70-1.30); GLOMERULAR FILTRATION RATE > 60.0 (>49); GLUCOSE, FASTING 132 MG/DL (74-106); POTASSIUM SERUM 4.7 MMOL/L (3.5-5.1); SODIUM LEVEL 139 MMOL/L (136-145)
== END ==
LOC: M LAB 07:42
PROVIDERS: ATTEND Internal Medicine
DX: I20.9 Angina pectoris, unspecified (principal); R06.02 Shortness of breath; I21.4 Non-ST elevation (NSTEMI) myocardial infarction; I10 Essential (primary) hypertension; R94.30 Abnormal result of cardiovascular function study, unspecified

== ENCOUNTER → 2022-07-01 | Outpatient (CLI) | payer MEDICARE | LOC: M PLALAB 11:59 | PROVIDERS: ATTEND Student in an Organized Health Care Education/Training Program | DX: E11.65 Type 2 diabetes mellitus with hyperglycemia (principal) ==

== ENCOUNTER → 2022-07-06 | Outpatient (REF) | payer MEDICARE, BC | LOC: M SFHCPLAZ 18:16 | PROVIDERS: ATTEND Family Medicine | DX: Z12.5 Encounter for screening for malignant neoplasm of prostate (principal) ==

== ENCOUNTER → 2022-10-14 | Outpatient (CLI) | payer BC, MEDICARE ==
[2022-10-14 14:39] LABS: BLOOD UREA NITROGEN 21 MG/DL (9-23); CALCIUM LEVEL 9.3 MG/DL (8.3-10.6); CARBON DIOXIDE LEVEL 28 MMOL/L (20-31); CHLORIDE LEVEL 101 MMOL/L (98-107); CREATININE FOR GFR 1.12 MG/DL (0.70-1.30); GLOMERULAR FILTRATION RATE > 60.0 (>49); GLUCOSE, FASTING 226 MG/DL (74-106); POTASSIUM SERUM 4.6 MMOL/L (3.5-5.1); SODIUM LEVEL 138 MMOL/L (136-145)
[2022-10-14 15:02] LABS: HEMOGLOBIN A1c 7.4 % (4.0-6.0)
[2022-10-15 23:07] LABS: PSA % FREE 24.6 % (.); PSA FREE 1.33 ng/mL; PSA TOTAL 5.4 ng/mL (0.0-4.0)
== END ==
LOC: M PLALAB 10:12
PROVIDERS: ATTEND Student in an Organized Health Care Education/Training Program
DX: E11.65 Type 2 diabetes mellitus with hyperglycemia (principal); Z12.5 Encounter for screening for malignant neoplasm of prostate

== ENCOUNTER → 2022-11-08 | Outpatient (REF) | payer MEDICARE, BC | LOC: M LABSMT 08:20 | PROVIDERS: ATTEND Urology | DX: R97.20 Elevated prostate specific antigen [PSA] (principal) ==

== ENCOUNTER → 2022-11-18 | Outpatient (CLI) | payer BC, MEDICARE ==
[2022-11-21 16:08] LABS: PSA % FREE 22.1 % (.); PSA FREE 1.24 ng/mL; PSA TOTAL 5.6 ng/mL (0.0-4.0)
== END ==
LOC: M PLALAB 12:15
PROVIDERS: ATTEND Urology
DX: R97.20 Elevated prostate specific antigen [PSA] (principal)

== ENCOUNTER → 2022-12-03 | Outpatient (CLI) | payer MEDICARE, BC | LOC: M WHC 09:10 | PROVIDERS: ATTEND Student in an Organized Health Care Education/Training Program | DX: R22.1 Localized swelling, mass and lump, neck (principal) ==

== ENCOUNTER → 2022-12-20 | Outpatient (CLI) | payer MEDICARE, BC | LOC: M PLAIMG 13:52 | PROVIDERS: ATTEND Internal Medicine Pulmonary Disease | DX: J44.1 Chronic obstructive pulmonary disease with (acute) exacerbation (principal) ==

== ENCOUNTER → 2022-12-24 | Outpatient (REF) | payer MEDICARE, BC ==
[~2022-12-24] MED LIST changes: -ALLE1TAB23; +FEXO-157; +FLOM0.4C39 PO; +OMEP40CA4 PO
== END ==
LOC: M SMT PRO 12:45
PROVIDERS: ATTEND Urology
DX: R97.20 Elevated prostate specific antigen [PSA] (principal); Z79.51 Long term (current) use of inhaled steroids; Z79.899 Other long term (current) drug therapy; Z79.84 Long term (current) use of oral hypoglycemic drugs; Z87.891 Personal history of nicotine dependence

== ENCOUNTER → 2022-12-29 | Outpatient (CLI) | payer MEDICARE, BC ==
[2022-12-29 11:25] LABS: BLOOD UREA NITROGEN 15 MG/DL (9-23); CALCIUM LEVEL 8.8 MG/DL (8.3-10.6); CARBON DIOXIDE LEVEL 30 MMOL/L (20-31); CHLORIDE LEVEL 106 MMOL/L (98-107); CREATININE FOR GFR 1.06 MG/DL (0.70-1.30); GLOMERULAR FILTRATION RATE > 60.0 (>49); GLUCOSE, FASTING 141 MG/DL (74-106); POTASSIUM SERUM 4.3 MMOL/L (3.5-5.1); SODIUM LEVEL 142 MMOL/L (136-145)
[2022-12-29 11:27] LABS: FREE T4 1.25 NG/DL (0.89-1.76); THYROID STIMULATING HORMONE 2.452 uIU/ML (0.55-4.78)
[2022-12-29 11:35] LABS: HEMOGLOBIN A1c 6.6 % (4.0-6.0)
[2022-12-31 23:14] LABS: PSA % FREE 19.1 % (.); PSA FREE 1.89 ng/mL; PSA TOTAL 9.9 ng/mL (0.0-4.0)
== END ==
LOC: M PLALAB 08:10
PROVIDERS: ATTEND Student in an Organized Health Care Education/Training Program
DX: E11.65 Type 2 diabetes mellitus with hyperglycemia (principal); R22.1 Localized swelling, mass and lump, neck; R97.20 Elevated prostate specific antigen [PSA]; Z12.5 Encounter for screening for malignant neoplasm of prostate

== ENCOUNTER → 2022-12-29 | Outpatient (CLI) | payer MEDICARE, BC ==
[2022-12-29 11:24] LABS: CHOLESTEROL RISK RATIO 2.28 (<5); LDL CHOLESTEROL 43.4 MG/DL (<100)
== END ==
LOC: M PLALAB 08:08
PROVIDERS: ATTEND Internal Medicine
DX: E78.5 Hyperlipidemia, unspecified (principal)

== ENCOUNTER 2022-12-30 08:33 | Emergency (ER) | payer MEDICARE, BC ==
[~2022-12-30] VITALS: Ht 177.8 cm; Wt 78.4 kg
[~2022-12-30 08:33] MED LIST changes: +ALLE1TAB23; -FEXO-157; -FLOM0.4C39 PO; -OMEP40CA4 PO
[2022-12-30] MEDS ORDERED: OMEP40CA4 PO (08:50)
[2022-12-30] MEDS ORDERED: LIDOCAINE 2% 5ML JELLY UROJET TOP ONE (09:35)
[2022-12-30 10:41] LABS: APPEARANCE, URINE CLEAR (CLEAR); BACTERIA, URINE AUTO NEGATIVE (NEGATIVE); BILIRUBIN, URINE AUTO NEGATIVE (NEGATIVE); BLOOD, URINE BLOOD 2+ (NEGATIVE); COLOR, URINE YELLOW (YELLOW); GLUCOSE, URINE (UA) AUTO NEGATIVE (NEGATIVE); KETONE, URINE AUTO NEGATIVE (NEGATIVE); LEUKOCYTE ESTERASE, URINE AUTO NEGATIVE (NEGATIVE); NITRITE, URINE AUTO NEGATIVE (NEGATIVE); PROTEIN, URINE AUTO NEGATIVE (NEGATIVE); RBC, URINE AUTO 4 /HPF (0-3); SPECIFIC GRAVITY URINE AUTO 1.009 (1.002-1.035); SQUAMOUS EPITHELIAL CELL UR AU 0 /HPF (0-6); UROBILINOGEN, URINE AUTO 0.2 mg/dL (0.0-2.0); WBC, URINE AUTO 1 /HPF (0-3)
[2022-12-30 10:48] VITALS: BP 131/73; TEMP 98.7; O2SAT 92
[2022-12-30] MEDS ORDERED: FLOM0.4C39 PO (15:04)
== END 2022-12-30 11:15 | disposition home or self-care (01) ==
LOC: M ED 08:33
DX: R33.9 Retention of urine, unspecified (principal); I10 Essential (primary) hypertension; E78.5 Hyperlipidemia, unspecified; E11.9 Type 2 diabetes mellitus without complications; I25.2 Old myocardial infarction; Z86.79 Personal history of other diseases of the circulatory system; Z79.2 Long term (current) use of antibiotics; Z79.82 Long term (current) use of aspirin; Z79.811 Long term (current) use of aromatase inhibitors; Z79.4 Long term (current) use of insulin; Z79.899 Other long term (current) drug therapy

== ENCOUNTER → 2023-01-04 | Outpatient (CLI) | payer MEDICARE, BC ==
[~2023-01-04] MED LIST changes: +FLOM0.4C39 PO; +ISOVUE-370 76% 100ML VIAL ONE; +OMEP40CA4 PO
== END ==
LOC: M PLAIMG 13:02
PROVIDERS: ATTEND Student in an Organized Health Care Education/Training Program
DX: R22.1 Localized swelling, mass and lump, neck (principal); J32.9 Chronic sinusitis, unspecified
CPT/HCPCS: 70491; Q9967

== ENCOUNTER → 2023-02-25 | Outpatient (CLI) | payer MEDICARE, OTHER ==
[~2023-02-25] MED LIST changes: -ALLE1TAB23; +FEXO-157; -ISOVUE-370 76% 100ML VIAL ONE
== END ==
LOC: M RAD 07:27
PROVIDERS: ATTEND Internal Medicine Pulmonary Disease
DX: J44.1 Chronic obstructive pulmonary disease with (acute) exacerbation (principal); Z87.891 Personal history of nicotine dependence

== ENCOUNTER → 2023-05-18 | Outpatient (REF) | payer MEDICARE, OTHER | LOC: M SFHCPLAZ 09:21 | PROVIDERS: ATTEND Family Medicine | DX: E11.65 Type 2 diabetes mellitus with hyperglycemia (principal) ==

== ENCOUNTER → 2023-05-23 | Outpatient (CLI) | payer MEDICARE, OTHER ==
[2023-05-23 14:09] LABS: BASO # 0.1 10^3/uL (0.0-0.2); BASO % 0.9 % (0.0-1.0); EOS # 0.5 10^3/uL (0.0-0.5); EOS % 5.7 % (0.0-3.0); HEMATOCRIT 42.2 % (42.0-52.0); HEMOGLOBIN 13.7 g/dl (13.5-17.5); HEMOGLOBIN A1c 7.3 % (4.0-6.0); LYMPH # 1.7 10^3/uL (1.5-5.0); MEAN CORPUSCULAR HEMOGLOBIN 30.6 pg (27.0-33.0); MEAN CORPUSCULAR HGB CONC 32.5 g/dl (32.0-36.5); MEAN CORPUSCULAR VOLUME 94.4 fl (80.0-96.0); MONO # 0.5 10^3/uL (0.0-0.8); MONO % 6.8 % (2.0-8.0); NEUTROPHILS # 5.2 10^3/uL (1.5-8.5); NEUTROPHILS % 65.1 % (36.0-66.0); PLATELET COUNT, AUTOMATED 236 10^3/uL (150-450); RED BLOOD COUNT 4.47 10^6/uL (4.30-6.10); WHITE BLOOD COUNT 7.9 10^3/uL (4.0-10.0)
[2023-05-23 14:23] LABS: BLOOD UREA NITROGEN 15 MG/DL (9-23); CALCIUM LEVEL 9.1 MG/DL (8.3-10.6); CARBON DIOXIDE LEVEL 32 MMOL/L (20-31); CHLORIDE LEVEL 106 MMOL/L (98-107); CHOLESTEROL LEVEL 108 MG/DL (<200); CHOLESTEROL RISK RATIO 2.41 (<5); CREATININE FOR GFR 1.03 MG/DL (0.70-1.30); GLOMERULAR FILTRATION RATE > 60.0 (>49); GLUCOSE, FASTING 135 MG/DL (74-106); HDL CHOLESTEROL 44.8 MG/DL (>40); NON-HDL-C 63.2 MG/DL; POTASSIUM SERUM 4.7 MMOL/L (3.5-5.1); SODIUM LEVEL 142 MMOL/L (136-145); TRIGLYCERIDES LEVEL 66 MG/DL (<150)
[2023-05-23 16:02] LABS: CREATININE, URINE 83.7 MG/DL; MAU/CREAT RATIO 5.9 MCG/MG (0.0-30.0)
[2023-05-24 23:12] LABS: PSA % FREE 22.2 % (.); PSA FREE 0.91 ng/mL; PSA TOTAL 4.1 ng/mL (0.0-4.0)
== END ==
LOC: M PLALAB 11:48
PROVIDERS: ATTEND Student in an Organized Health Care Education/Training Program
DX: E78.00 Pure hypercholesterolemia, unspecified (principal); I10 Essential (primary) hypertension; E11.65 Type 2 diabetes mellitus with hyperglycemia; R97.20 Elevated prostate specific antigen [PSA]

== ENCOUNTER → 2023-08-02 | Outpatient (CLI) | payer MEDICARE, OTHER | LOC: M RAD 10:27 | PROVIDERS: ATTEND Family Medicine | DX: F17.201 Nicotine dependence, unspecified, in remission (principal) ==

== ENCOUNTER → 2024-02-02 | Outpatient (CLI) | payer MEDICARE, OTHER ==
[~2024-02-02] MED LIST changes: -FEXO-157; +FEXO-63
== END ==
LOC: M WUC 12:20
PROVIDERS: ATTEND Physician Assistant
DX: S60.042A Contusion of left ring finger without damage to nail, initial encounter (principal); X58.XXXA Exposure to other specified factors, initial encounter; Y92.9 Unspecified place or not applicable

== ENCOUNTER → 2024-09-11 | Outpatient (CLI) | payer MEDICARE ==
[~2024-09-11] MED LIST changes: -FLOM0.4C39 PO; +TAMS-18 PO
[2024-09-11 15:55] LABS: IMMUNOGLOBULIN E 185.4 IU/ML (0-378)
== END ==
LOC: M PLALAB 13:47
PROVIDERS: ATTEND Anesthesiology
DX: J47.9 Bronchiectasis, uncomplicated (principal)

== ENCOUNTER → 2024-11-13 | Outpatient (CLI) | payer MEDICARE | LOC: M PLALAB 09:33 | PROVIDERS: ATTEND Anesthesiology | DX: J47.9 Bronchiectasis, uncomplicated (principal) ==